=== PATIENT | male | born 1960 ===

== ENCOUNTER 2024-09-26 08:46 | Outpatient (AMB) | payer OTHER, SELFPAY ==
--- NOTE | 2024-09-26 08:47 | A.OFFVIS_ITS ---
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 He denies any fevers or chills. 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 He has taken Aleve which gives him mild relief. He denies any locking or giving way. He denies any constant pain. He has been able to ski with only mild discomfort. 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 Physical Exam Vital Signs: BMI result Body Mass Index 24.4 Const Other: Well-nourished well-developed very friendly male awake alert and oriented x3 in no acute distress Extrem Other: Right knee examination shows that the surgical incision is well healed, no erythema, full active extension and flexion to 120 degrees, his patella tracks well, mild tenderness over his patellar tendon, no instability Results Reviewed Results Reviewed: X-rays of the patient's right knee taken today show a total knee arthroplasty in good position with no signs of loosening, no acute bony abnormalities Assessment & Plan Assessment & Plan (1) Right knee pain: Code(s): M25.561 - Pain in right knee Category: Medical Plan Mr. Mckeon presents with intermittent right knee discomfort due to overuse and patellar tendinitis. I had a lengthy discussion with the patient regarding the treatment options. At this point the patient's symptoms are tolerable to him. He will continue with his activity modifications. He will follow up with me on an as-needed basis should his symptoms worsen in any way. Feel free to call me at any time should questions regarding his orthopedic management arise. I spent 20 minutes in reviewing the patient's records and imaging studies, seeing the patient and documenting in the medical record. Orders: Orders XR knee RT 3V Today M25.561 - Pain in right knee Coding Level of Care Code New Pt Level 3 (49613) Complex EM visit Add On G2211 Diagnoses Right knee pain M25.561
[2024-09-26 08:57] VITALS: BMI 24.4
--- OUTSIDE RECORDS SUMMARY | 2024-09-26 09:12 | XMS_ITS | Clinical Summary ---
Author Organization [facility] [address] [facility] Address [address] [place] [address] Phone Care Team Providers Care Director Of Corporate Responsibility Name Role Phone Eliceo Frederick MD Primary Care Provider [phone] Social History Tobacco Use Types Packs/Day Years Used Date Smoking Tobacco: Never Assessed Sex and Gender Information Value Date Recorded Sex Assigned at Not on file Legal Sex Male 3:57 PM EST Gender Identity Not on file Sexual Orientation Not on file Plan of Treatment Health Maintenance Due Date Last Done Comments DTaP,Tdap,and Td Vaccines (1 - Tdap) 1981 Pneumococcal Vaccine: 50+ Ye ars (1 of 1 - PCV) 2012 Zoster Vaccines (1 of 2) 2012 COVID-19 Vaccine ( - 2023-2 5 season) 2024 Cholesterol Screening (Lipid Panel) 04/30/2024 Colorectal Cancer Screening: Colonoscopy 04/30/2024 Depression Screening 04/30/2024 HIV Screening 04/30/2024 Hepatitis C Screening 04/30/2024 Social Influencers of Health Screening 04/30/2024 Influenza Vaccine (Season Ended) 2025 RSV Immunization Adult Patie nts (1 - 1-dose 75+ series) 2037 HIB Vaccines Aged Out No longer eligi ble based on patient's age to complete this topic HPV Vaccines Aged Out No longer eligi ble based on patient's age to complete this topic Hepatitis A Vaccines Aged Out No long er eligible based on patient's age to complete this topic Hepatitis B Vaccines Aged Out No long er eligible based on patient's age to complete this topic IPV Vaccines Aged Out No longer eligi ble based on patient's age to complete this topic MMR Vaccines Aged Out No longer eligi ble based on patient's age to complete this topic Meningococcal ACWY Vaccine Aged Out N o longer eligible based on patient's age to complete this topic Meningococcal B Vaccine Aged Out No l onger eligible based on patient's age to complete this topic Pneumococcal Vaccine: Pediat rics (0 to 5 Years) and At-Risk Patients (6 to 64 Years) Aged Out No longer eligible b ased on patient's age to complete this topic RSV Immunization Patients Un regi 20 months Aged Out No longer eligible b ased on patient's age to complete this topic Varicella Vaccines Aged Out No longer eligible based on patient's age to complete this topic Insurance A[employer]NA Care Teams Director Of Corporate Responsibility Relationship Specialty Start Date End Date Eliceo Frederick MD [address] [place] [address] PCP - General Internal Medicine 05/22/24
--- OUTSIDE RECORDS SUMMARY | 2024-09-26 09:13 | XMS_ITS | Data Portability ---
Author Organization [facility] Address [address] [place] [address] Care Team Providers Care Shank Sander Name Role Phone LEE ANN WARD Primary Care Provider LEE ANN WARD Referring Provider LEE ANN WARD Primary Care Provider [phone] Assessment Encounter Date Assessment Date Assessment LastModified by Organization Details LastModified Time 04/08/2017 04/08/2017 X-rays show a well implanted right total knee replacement without evidence of complications. Assessment: Satisfactory course, right total knee replacement at 6 weeks. Recommendation: Continue on his exercise program. Expectations discussed. Follow-up before 90 days. [email or web address] Not available 04/08/2017 12:12:57 05/12/2017 05/12/2017 Assessment: Satisfactory course, right total knee replacement. 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 We will extend his disability another 3 months and then he should be able to return.he will follow-up around that time. [email or web address] Not available 05/12/2017 12:19:37 08/11/2017 08/11/2017 Assessment: Satisfactory course, right total knee replacement. Recommendation: Antibiotic prophylaxis discussed. Follow-up at one year postop. rmiegel Not available 08/11/2017 10:13:59 02/23/2018 02/23/2018 Assessment: Satisfactory course, right total knee replacement at one year. Antibiotic prophylaxis discussed. Activity modification discussed. Follow-up as needed. [email or web address] Not available 02/23/2018 13:03:57 01/11/2019 01/11/2019 No x-rays were obtained Assessment: Right knee pain after knee replacement. He does have a considerable amount of quad atrophy on the right and it is recommended that he strengthen the knee with straight leg raising with weights and he use a stationary bike. He agrees with the plan. He will follow up as needed. Antibiotic prophylaxis discussed. The visit was 20 minutes in length and greater than 50% was spent [id number] counseling and coordinating care. [email or web address] Not available 01/11/2019 11:42:42 Plan of Treatment Reminders Order Date Submit Date Provider Last Modified By Organization Details Last Modified Time Details Appointments None record ed. Lab None record ed. Referral None record ed. Procedures None record ed. Surgeries None record ed. Imaging None record ed. Medication Orders None record ed. Patient TargetsNo targets recorded. Patient InstructionsNo instructions recorded. Reason for Referral None Reported. Results Created Date Observation Date Name Description Value Unit Range Abnormal Flag Note LastModifiedBy Organization Detail LastModifiedTime 03/09/20 17 knee No observ ation record ed. [facility] [address], [address] 03/15/2017 10:47:10 Result Notes None recorded. Problems Name Problem SNOMED Code Status Onset Date Resolution Date Notes Provider Name and Address Organization Details Recorded Time Backache 486522280 Active 017 Graciela pham [facility] 7 14:57:49 Problem Notes None recorded. Procedures Surgical History Date Name Laterality Status Provider Name and Address Organization Details Recorded Time Knee arthroscopy/surge ry completed Graciela Patel [facility] 09/09/2016 14:58:19 Barbara arthrs srg capsulorraphy completed Graciela Patel [facility] 09/09/2016 14:58:35 Imaging Results Imaging Date Name Status LastModified by Organizatio n Details LastModified Time 03/09/2017 knee completed [facility] [address], [address] 03/15/2017 10:47:10 Procedure Notes None recorded. Medical Equipment None Reported. Allergies Allergen ID Allergen Name Allergen Category Reaction Reaction Severity Criticality Documentation Date Start Date Code Code System Note Provider Name and Address Organization Details Recorded Time 826075 erythromy moe medicatio n Not available Not available Not available 09/09/2016 4053 RxNorm Graciela pham [facility] 7 14:57:39 Medications Name Sig Start Date Stop Date Status Note LastModified by Organization Details LastModified Time celecoxib 200 mg capsule Take 1 capsule twice a day by oral route. 04/08 completed Not Available Not Available Not Available amoxicillin 500 mg capsule active Not Available Not Available Not Available ciprofloxaci n 250 mg tablet active Not Available Not Available Not Available doxycycline monohydrate 100 mg tablet active Not Available Not Available Not Available tramadol 50 mg tablet 1-2 q 6 prn pain 05/12 completed Not Available Not Available Not Available amoxicillin 500 mg tablet Take 4 tablets as needed by oral route as directed . 2017 active Not Available Not Available Not Avai lable ketorolac 0.5 % eye drops active Not Available Not Available Not Available hydromorphon e 2 mg tablet 1-2 q 4 hours prn pain 04/08 completed Not Available Not Available Not Available prednisolone acetate 1 % eye drops,suspen jo active Not Available Not Available Not Available cephalexin 500 mg capsule active Not Available Not Available Not Available losartan 25 mg tablet active Not Available Not Available No t Available omeprazole 20 mg capsule,brody yed release 08/11 completed Not Available Not Available Not Available morphine ER 15 mg tablet,exten ded release 08/11 completed Not Available Not Available Not Available methylpredni solone 4 mg tablets in a dose pack active Not Available Not Available No t Available hydromorphon e 4 mg tablet 04/08 completed Not Available Not Available Not Available naproxen 500 mg tablet active Not Available Not Available No t Available oxycodone 5 mg tablet active Not Available Not Available No t Available moxifloxacin 0.5 % eye drops active Not Available Not Available Not Available naproxen 08/11 completed Not Available Not Available Not Available Tylenol active Not Available Not Avail able Not Available Vitals Date Recorded Body height Body mass index (BMI) Body weight Body temperature Provider Name and Address Organization Details Last Updated DateTime 04/08/2017 180.34 cm 25.4 kg/m2 83504.81 g 98.4 [degF] lio aguilar [facility] 04/08/2017 10:28:08 Date Recorded Pain severity - 0-10 verbal numeric rating [Score] - Reported Provider Name and Address Organization Details Last Updated DateTime 04/08/2017 3 Not Available [facility] 8 05:58:43 Date Recorded Body height Body mass index (BMI) Body weight Body temperature Provider Name and Address Organization Details Last Updated DateTime 05/12/2017 180.34 cm 25.1 kg/m2 91521.63 g 97 [degF] Cara Hollis [facility] 05/12/2017 10:49:01 Date Recorded Pain severity - 0-10 verbal numeric rating [Score] - Reported Provider Name and Address Organization Details Last Updated DateTime 05/12/2017 3 Not Available [facility] 8 05:58:49 Date Recorded Body height Body mass index (BMI) Body weight Body temperature Provider Name and Address Organization Details Last Updated DateTime 08/11/2017 180.34 cm 25.5 kg/m2 71268.4 g 97.7 [degF] Carabeevrly Hollis [facility] 08/11/2017 09:50:04 Date Recorded Pain severity - 0-10 verbal numeric rating [Score] - Reported Provider Name and Address Organization Details Last Updated DateTime 08/11/2017 2 Not Available [facility] 8 05:59:02 Date Recorded Body height Body mass index (BMI) Body weight Body temperature Provider Name and Address Organization Details Last Updated DateTime 02/23/2018 180.34 cm 25.8 kg/m2 80455.59 g 97.2 [degF] Cara Hollis [facility] 02/23/2018 10:31:54 Date Recorded Pain severity - 0-10 verbal numeric rating [Score] - Reported Provider Name and Address Organization Details Last Updated DateTime 02/23/2018 2 Not Available [facility] 8 05:59:33 Date Recorded Body height Body mass index (BMI) Body weight Pain severity - 0-10 verbal numeric rating [Score] - Reported Body temperature Provider Name and Address Organization Details Last Updated DateTime 9 180.34 cm 25.4 kg/m2 97072.8 1 g 2 98.3 [degF] Leonie Blackburn [facility] 9 11:25:02 Social History Question Answer Notes LastModified by Organizat ion Details LastModified Time Tobacco Smoking Status Never Smoker ELIJAH Riddle [facility] 09/09/2016 14:57:57 What Is Your Level Of Alcohol Consumption? Occasional [email or web address] Information not available 04/08/2017 How Many Days In The Past Year Have You Had A Heavy Drinking Consumption (4+ Female, 5+ Male)? 0 [email or web address] Information not available 03/09/2017 What Was The Date Of Your Most Recent Tobacco Screening? 02/23/2018 Information n ot available 01/03/2019 Has Tobacco Cessation Counseling Been Provided? Yes [email or web address] Information not available 11/25/2016 On What Date Was Tobacco Cessation Counseling Provided? 01/11/2019 [email or web address] Information not available 01/11/2019 Sex: Unknown Functional Status None recorded. Mental Status None recorded. Family History Nothing Reported. Medical History Condition Response Coronary Artery Disease N Dyslipidemia N Gout N Artificial Joints N Thyroid Problems N Lung Disease N Depression N Pacemaker N Anemia N Back Pain N Hearing Impairment N Heart Attack ([place]) N Headaches/Migraines N Deep Vein Thrombosis N Anxiety Disorder N Diabetes N Bleeding Disorder N Arthritis N Seizures/Epilepsy N Blood Clot N Tuberculosis N AIDS/HIV N Inflammatory Bowel Disease N Acid Reflux (GERD) N Cancer N Stroke N Substance Abuse N Peripheral Vascular Disease N Asthma/COPD N Wears Glasses/Contacts N Hepatitis N Heart Disease N Organ Transplant N Rheumatoid Arthritis N Pulmonary Embolism N Fibromyalgia N Hypertension Y Stomach Ulcer N Osteoporosis N Kidney Disease N Past Encounters Encounter ID Performer Location Encounter Start Date Encounter Closed Date Diagnosis/Indication Diagnosis SNOMED-CT Code Diagnosis ICD10 Code Diagnosis Note [id number] ANTOINE RICH MD [address] [place] [address] 09/09/2016 13:39:01 09/10/2016 15:31:40 [id number] ANTOINE RICH MD [place] [address] [facility],[address] [place] [address] 11/25/2016 13:38:31 11/25/2016 15:57:49 Osteoarthritis of knee 305005519 M17.11 [id number] NATALEE NELSON [address] [place] [address] 03/09/2017 13:11:29 03/09/2017 13:56:00 History of total knee arthroplasty 1350538079 105 Z96.659 History of right total knee replacement 4236528037 733988 Z96.651 [id number] ANTOINE RICH MD [address] [place] [address] 04/08/2017 10:09:00 04/11/2017 12:29:26 History of right total knee replacement 0927801236 125434 Z96.651 Implantati on of joint prosthesis 60044076 Z47.1 [id number] ANTOINE RCIH MD [place] [address] [facility],[address] [place] [address] 05/12/2017 10:28:36 05/13/2017 14:23:09 [id number] ANTOINE RICH MD [address] [place] [address] 08/11/2017 09:35:06 08/15/2017 12:13:44 [id number] ANTOINE RICH MD [address] [place] [address] 02/23/2018 10:25:49 02/23/2018 11:16:29 History of right total knee replacement 1200179242 852798 Z96.651 [id number] ANTOINE RICH MD [address] [place] [address] 01/11/2019 11:04:35 01/11/2019 12:26:03 Pain in right knee 3413157018 95912 M25.561 History of right total knee replacement 6748842379 263235 Z96.651 Health Concerns Section Related Observation LastModified by Organization Detai ls LastModified Time None Recorded Concern Status LastModified by Organization Details LastModified Time None Recorded Advance Directives Directive None Recorded Payers Encounter Date Sequence Insurance Name Policy Number Policy De Souza Covered Member ID De Souza Member ID Guarantor Name 04/08/2017 1 [place] [employer] [id number] Ruth Mckeon [id number] Chiki Mckeon 05/12/2017 1 [employer] [id number] Ruth Mckeon [id number] Chiki Mckeon 08/11/2017 1 [employer] (EPO) [id number] Ruth Mckeon [id number] Chiki Mckeon 02/23/2018 1 [employer] (EPO) [id number] Ruth Mckeon [id number] Chiki Mckeon 01/11/2019 1 [employer] (EPO) [id number] Ruth Mckeon [id number] Chiki Mckeon Notes Date Note Type Note Provider Name and Address Organization Details Recorded Time 04/08/2017 text/html This 56-year-old male is now 6 weeks after his right total knee replacement with navigation performed on 02/23/17. He is doing well. Does have some aching discomfort. Generally he is quite pleased with how things are going. Denies fever or chills and feels well. ANTOINE RICH MD [address] [place] [address],[address], [address], [facility] 04/08/2017 12:13:27 05/12/2017 text/html This 56-year-old male is now about 10 weeks after his right total knee replacement. He is doing well. 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 ANTOINE RICH MD [address] [place] [address],[address], [address], [facility] 05/12/2017 12:19:49 08/11/2017 text/html This 57-year-old male is now 4-1/2 months after his right total knee replacement. He is doing well. He generally does not have pain in the knee. Notes stiffness when he does not do his exercises. He can go up and down stairs without significant difficulty. ANTOINE RICH MD [address] [place] [address],[address], [address], [facility] 08/11/2017 10:14:19 02/23/2018 text/html This 57-year-old male is now a year after his right total knee replacement. He is quite pleased with his results. He has no pain of significance. He has no limitation of function. He can do stairs and walk and get up and down from sitting all without difficulty. ANTOINE RICH MD [address] [place] [address],[address], [address], [facility] 02/23/2018 13:04:15 01/11/2019 text/html This 58-year-old male is now almost 2 years after his right total knee replacement. He has returned to being active. 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 He has been experiencing some pain in the medial aspect of the knee. It is along the course of the MCL. There is no buckling or locking. He did have some pain aafter skiing this past winter. There is no buckling or locking or swelling. The pain is not severe. ANTOINE RICH MD [address] [place] [address],[address], [place], [address], [facility] 01/11/2019 11:43:02
--- OUTSIDE RECORDS SUMMARY | 2024-09-26 09:14 | XMS_ITS | Clinical Summary ---
Author Organization [facility] Address [address] [facility] [address] [place] [address] Phone Care Team Providers Care Quality Process Lead Name Role Phone Eliceo Frederick MD Primary Care Provider [phone] Medications Medication Sig Dispensed Refills Start Date End Date Status losartan (COZAAR) 50 MG tablet Take 50 mg by mouth daily. Active naproxen (NAPROSYN) 375 MG tablet Take 375 mg by mouth daily. Active Active Problems No known active problems Social History Tobacco Use Types Packs/Day Years Used Date Smoking Tobacco: Former Smokeless Tobacco: Never Alcohol Use Standard Drinks/Week Comments Yes 4 (1 standard drink = 0.6 oz pur e alcohol) Education Answer Date Recorded Are you interested in more education? Not on brice e 10/07/2022 Are you concerned about learning? Not on file 10/07/2022 No 10/07/2022 No 10/07/2022 Digital Access Answer Date Recorded No 11/08/2022 No 11/08/2022 No 11/08/2022 Reliable internet access at home? Not on file 11/08/2022 Device with a working camera? Not on file Sex and Gender Information Value Date Recorded Sex Assigned at Not on file Gender Identity Not on file Sexual Orientation Not on file Plan of Treatment Health Maintenance Due Date Last Done Comments CREATININE LEVEL 1960 LIPID PANEL 1962 POTASSIUM LEVEL 1962 DEPRESSION SCREENING 1974 SMOKING Hx and SMOKELESS TOBACCO SCREENING 1975 HEPATITIS C SCREENING 1980 HIV ONE-TIME SCREENING (18-6 5 YEARS) 1980 COLOGUARD 2007 COLONOSCOPY 2007 COLORECTAL CANCER SCREENING 2007 FIT TEST 2007 FOBT 2007 SIGMOIDOSCOPY 2007 VIRTUAL COLONOSCOPY 2007 PNEUMOCOCCAL VACCINES (50+ years) (1 of 1 - PCV) 2012 ZOSTER VACCINES (2 of 2) 05/07/2021 03/12/2021 COVID-19 VACCINE (3 - 2023-2 5 season) 2024 05/18/2021, 09/19/2020 Adult Td,Tdap Booster 04/15/2031 04/15/2021 , 01/07/2019 RSV VACCINE (1 - 1-dose 75+ series) 2037 HEPATITIS A VACCINES Aged Out No long er eligible based on patient's age to complete this topic HIB VACCINES Aged Out No longer eligi ble based on patient's age to complete this topic MENINGOCOCCAL VACCINES (ACWY) Aged Out No longer eligible based on patient's age to complete this topic Medical [place] [address]Chiki Pascual Personal/Famil y Self [address] [place] [address] [place] [address]Chiki Pascual Personal/Famil y Self [address] [place] [address] Chiki Mckeon Personal/Famil y Self [address] [place] [address] Chiki Mckeon Personal/Famil y Self [address] [place] [address] Care Teams Quality Process Lead Relationship Specialty Start Date End Date Eliceo Frederick MD PCP - General Internal Medicine 10/05/17 Additional Source Comments The information contained in this document represents components of the legal health record. It is not the complete legal health record.[facility]
== END 2024-09-26 09:13 | disposition home or self-care (01) ==
LOC: HO.HOS 08:46
PROVIDERS: Visit Provider Orthopaedic Surgery
DX: M25.561 Pain in right knee (principal); Z96.651 Presence of right artificial knee joint
CPT/HCPCS: 99203

== ENCOUNTER → 2024-09-26 08:48 | Outpatient (BNV) | payer OTHER, SELFPAY | PROVIDERS: Visit Provider Radiology Diagnostic Radiology | DX: M25.561 Pain in right knee (principal) | CPT/HCPCS: 73562 ==

== ENCOUNTER 2024-09-26 09:16 | Outpatient (REF) | payer OTHER, SELFPAY ==
--- NOTE | ~2024-09-26 | XR_ITS ---
EXAMINATION: XR KNEE 3 VIEWS RIGHT HISTORY: M25.561 - Pain in right knee COMPARISON: There are no prior studies available for comparison. FINDINGS: Three views of the right knee are submitted. The patient is status post total knee arthroplasty. The orthopedic elements are in anatomic alignment. There is no radiographic evidence of loosening. There is no fracture or dislocation. The soft tissues are unremarkable. There is no joint effusion. XR/XR knee RT 3V IMPRESSION: Status post right total knee arthroplasty. Electronically signed by: Josep Mckinney MD 09/27/2024 07:57 AM EDT
--- OUTSIDE RECORDS SUMMARY | 2024-09-27 10:27 | XMS_ITS | Clinical Summary ---
Author Organization [facility] [address] [facility] Address [address] [place] [address] Phone Care Team Providers Care Hot Molder Name Role Phone Eliceo Frederick MD Primary Care Provider [phone] Social History Tobacco Use Types Packs/Day Years [...] complete this topic Insurance [employer] Care Teams Hot Molder Relationship Specialty Start Date End Date Eliceo Frederick MD [address] [place] [address] PCP - General Internal Medicine 05/22/24
--- OUTSIDE RECORDS SUMMARY | 2024-09-27 10:27 | XMS_ITS | Clinical Summary ---
Author Organization [facility] Address [address] [facility] [address] [place] [phone] Phone Care Team Providers Care Briquette Machine Operator Name Role Phone Eliceo Frederick MD Primary Care Provider [phone] Medications Medication Sig Dispensed Refills Start Date [...] this topic Medical Devices Not on file Care Teams Briquette Machine Operator Relationship Specialty Start Date End Date Eliceo Frederick MD PCP - General Internal Medicine 10/05/17 Additional Source Comments The information contained in this document represents components of the legal health record. It is not the complete legal health record.[facility]
--- OUTSIDE RECORDS SUMMARY | 2024-09-27 10:27 | XMS_ITS | Data Portability ---
Author Organization [facility] Address [address] [place] [address] Care Team Providers Care Universal Grinder Operator Name Role Phone LEE ANN WARD Primary Care Provider [phone] LEE ANN WARD Referring Provider LEE ANN WARD Primary Care Provider Assessment Encounter Date Assessment Date Assessment LastModified [...] length and greater than 50% was spent [id number] counseling and coordinating care. rmiegel Not available [...] 17 knee No observ ation record ed. [facility] [address], [address] 03/15/2017 10:47:10 Result Notes None recorded. Problems Name Problem SNOMED Code Status Onset Date Resolution Date Notes Provider Name and Address Organization Details Recorded Time Backache 842026551 Active 017 Graciela pham [facility] 7 14:57:49 Problem Notes None recorded. Procedures Surgical History Date Name Laterality Status Provider Name and Address Organization Details Recorded Time Knee arthroscopy/surge ry completed Graciela Patel [facility] 09/09/2016 14:58:19 Barbara arthrs srg capsulorraphy completed Graciela Patel [facility] 09/09/2016 14:58:35 Imaging Results Imaging Date Name Status LastModified by Organizatio n Details LastModified Time 03/09/2017 knee completed [facility] [address], [address] 03/15/2017 10:47:10 Procedure Notes None recorded. Medical Equipment None Reported. Allergies Allergen ID Allergen Name Allergen Category Reaction Reaction Severity Criticality Documentation Date Start Date Code Code System Note Provider Name and Address Organization Details Recorded Time 537369 erythromy moe medicatio n Not available Not available Not available 09/09/2016 4053 RxNorm Graciela pham [facility] 7 14:57:39 Medications Name [...] Updated DateTime 04/08/2017 180.34 cm 25.4 kg/m2 51040.81 g 98.4 [degF] lio aguilar [facility] 04/08/2017 10:28:08 Date Recorded Pain severity - 0-10 verbal numeric rating [Score] - Reported Provider Name and Address Organization Details Last Updated DateTime 04/08/2017 3 Not Available [facility] 8 05:58:43 Date Recorded Body height Body mass index (BMI) Body weight Body temperature Provider Name and Address Organization Details Last Updated DateTime 05/12/2017 180.34 cm 25.1 kg/m2 17482.63 g 97 [degF] Cara Hollis [facility] 05/12/2017 10:49:01 Date Recorded Pain severity - 0-10 verbal numeric rating [Score] - Reported Provider Name and Address Organization Details Last Updated DateTime 05/12/2017 3 Not Available [facility] 8 05:58:49 Date Recorded Body height Body mass index (BMI) Body weight Body temperature Provider Name and Address Organization Details Last Updated DateTime 08/11/2017 180.34 cm 25.5 kg/m2 93977.4 g 97.7 [degF] Carabeverly Hollis [facility] 08/11/2017 09:50:04 Date Recorded Pain severity - 0-10 verbal numeric rating [Score] - Reported Provider Name and Address Organization Details Last Updated DateTime 08/11/2017 2 Not Available [facility] 8 05:59:02 Date Recorded Body height Body mass index (BMI) Body weight Body temperature Provider Name and Address Organization Details Last Updated DateTime 02/23/2018 180.34 cm 25.8 kg/m2 32618.59 g 97.2 [degF] Cara Hollis [facility] 02/23/2018 10:31:54 Date Recorded Pain severity - 0-10 verbal numeric rating [Score] - Reported Provider Name and Address Organization Details Last Updated DateTime 02/23/2018 2 Not Available [facility] 8 05:59:33 Date Recorded Body height Body mass index (BMI) Body weight Pain severity - 0-10 verbal numeric rating [Score] - Reported Body temperature Provider Name and Address Organization Details Last Updated DateTime 9 180.34 cm 25.4 kg/m2 35880.8 1 g 2 98.3 [degF] Leonie Blackburn [facility] 9 11:25:02 Social History Question Answer Notes LastModified by Organizat ion Details LastModified Time Tobacco Smoking Status Never Smoker ELIJAH Riddle [facility] 09/09/2016 14:57:57 What Is Your Level Of Alcohol Consumption? Occasional cwynters Information not available 04/08/2017 How Many Days In The Past Year Have You Had A Heavy Drinking Consumption (4+ Female, 5+ Male)? 0 Information not available 03/09/2017 What Was The [...] History Condition Response Coronary Artery Disease N Gout N Lung Disease N Depression N Pacemaker N Hearing Impairment N Headaches/Migraines N Deep Vein Thrombosis N Anxiety Disorder N Arthritis N Blood Clot N Acid Reflux (GERD) N Cancer N Stroke N Organ Transplant N Rheumatoid Arthritis N Fibromyalgia N Kidney Disease N Dyslipidemia N Artificial Joints N Thyroid Problems N Anemia N Back Pain N Heart Attack ([place]) N Diabetes N Bleeding Disorder N Seizures/Epilepsy N Tuberculosis N AIDS/HIV N Inflammatory Bowel Disease N Substance Abuse N Peripheral Vascular Disease N Asthma/COPD N Wears Glasses/Contacts N Hepatitis N Heart Disease N Pulmonary Embolism N Hypertension Y Stomach Ulcer N Osteoporosis N Past Encounters Encounter ID Performer Location Encounter Start Date Encounter Closed Date Diagnosis/Indication Diagnosis SNOMED-CT Code Diagnosis ICD10 Code Diagnosis Note [id number] ANTOINE RICH MD [address] [place] [address] 09/09/2016 13:39:01 09/10/2016 15:31:40 [id number] ANTOINE RICH MD [place] [address] [facility],[address] [place] [address] 11/25/2016 13:38:31 11/25/2016 15:57:49 Osteoarthritis of knee 198379368 M17.11 [id number] NATALEE NELSON [address] [place] [address] 03/09/2017 13:11:29 03/09/2017 13:56:00 History of total knee arthroplasty 8873282751 105 Z96.659 History of right total knee replacement 4342050753 071206 Z96.651 [id number] ANTOINE RICH MD [address] [place] [address] 04/08/2017 10:09:00 04/11/2017 12:29:26 History of right total knee replacement 2952163015 151847 Z96.651 Implantati on of joint prosthesis 10330120 Z47.1 [id number] ANTOINE RICH MD [place] [address] [facility],[address] [place] [address] 05/12/2017 10:28:36 05/13/2017 14:23:09 [id number] ANTOINE RICH MD [address] [place] [address] 08/11/2017 09:35:06 08/15/2017 12:13:44 [id number] ANTOINE RICH MD [address] [place] [address] 02/23/2018 10:25:49 02/23/2018 11:16:29 History of right total knee replacement 4658231612 261482 Z96.651 [id number] ANTOINE RICH MD [address] [place] [address] 01/11/2019 11:04:35 01/11/2019 12:26:03 Pain in right knee 5720511062 65386 M25.561 History of right total knee replacement 6081345054 873700 Z96.651 Health Concerns Section Related Observation LastModified by Organization Detai ls LastModified Time None Recorded Concern Status LastModified by Organization Details LastModified Time None Recorded Advance Directives Directive None Recorded Payers Encounter Date Sequence Insurance Name Policy Number Policy De Souza Covered Member ID De Souza Member ID Guarantor Name 04/08/2017 1 [place] [employer] [id number] Ruth Mckeon [id number] Chiki Mckeon 05/12/2017 1 [place] [employer] [id number] Ruth Mckeon [id number] Chiki Mckeon 08/11/2017 1 [employer] (EPO) [id number] Ruth Mckeon [id number] Chiki Mckeon 02/23/2018 1 [employer] (EPO) [id number] Ruth Mckeon [id number] Chiki Mckeon 01/11/2019 1 [employer] (EPO) [id number] Ruth Mckeon [id number] Chiki Mckeon Notes Date Note Type [...] chills and feels well. ANTOINE RICH MD [address] [place] [address],[address], [address], [facility] 04/08/2017 12:13:27 05/12/2017 text/html This 56-year-old male is now about 10 weeks after his right total knee replacement. He is doing well. 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 ANTOINE RICH MD [address] [place] [address],[address], [address], [facility] 05/12/2017 12:19:49 08/11/2017 text/html This 57-year-old male is now 4-1/2 months after his right total knee replacement. He is doing well. He generally does not have pain in the knee. Notes stiffness when he does not do his exercises. He can go up and down stairs without significant difficulty. ANTOINE RICH MD [address] [place] [address],[address], [address], [facility] 08/11/2017 10:14:19 02/23/2018 text/html This 57-year-old male is now a year after his right total knee replacement. He is quite pleased with his results. He has no pain of significance. He has no limitation of function. He can do stairs and walk and get up and down from sitting all without difficulty. ANTOINE RICH MD [address] [place] [address],[address], [address], [facility] 02/23/2018 13:04:15 01/11/2019 text/html [...] pain is not severe. ANTOINE RICH MD [address] [place] [address],[address], [place], [address], [facility] 01/11/2019 11:43:02
== END 2024-09-26 09:17 | disposition home or self-care (01) ==
LOC: HO.HOSX 09:16
PROVIDERS: Visit Provider Orthopaedic Surgery
DX: M76.51 Patellar tendinitis, right knee (principal); T84.84XA Pain due to internal orthopedic prosthetic devices, implants and grafts, initial encounter; Z96.651 Presence of right artificial knee joint
CPT/HCPCS: 73562